=== PATIENT | female | born 1930 | race Caucasian/White ===

== ENCOUNTER → 2017-07-28 | Outpatient (CLI) | payer OTHER ==
[~2017-07-28] MED LIST: ALPR0.5T3 PO; CITA20TA4 PO; COLA100C3 PO; DILT240C44 PO; HYDR-3533 PO; OMEP20CA2; PRAV40TA2 PO; TEMA30CA PO
--- NOTE | 2017-08-02 10:28 | RSPPFT ---
DATE OF PROCEDURE: 07/28/17 COMMENTS: VOLUMES DYNAMIC: FVC and FEV1 normal. STATIC: FRC, RV and TLC normal. FLOWS: FEV1% and FEF 25-75 normal. DIFFUSION: Moderately reduced. FLOW VOLUME LOOP: Erratic tracing but essentially normal configuration. IMPRESSION: These appear to be essentially normal pulmonary functions with no significant obstruction or restriction although there is a reduction in diffusion. The therapist noted patient had difficulty with the testing and that may account for this low value. Clinical correlation is required. The improvement post-bronchodilator is questionably related to obstruction since no significant large or small airways obstruction is noted on spirometry.
== END ==
LOC: HRSP 11:40
PROVIDERS: ATTEND Family Medicine
DX: R06.02 Shortness of breath (principal)
CPT/HCPCS: 94060; 94618; 94726; 94729